=== PATIENT | female | born 1945 | race Caucasian/White ===

== ENCOUNTER 2018-02-23 09:03 | Outpatient (CLI) | payer OTHER, MEDICAID ==
[~2018-02-23 09:03] MED LIST: AMLO5TAB4 PO; ASPI-1153 PO
== END 2018-02-23 21:11 | disposition home or self-care (01) ==
LOC: SMA 09:03
PROVIDERS: ATTEND Family Medicine
DX: Z12.31 Encounter for screening mammogram for malignant neoplasm of breast (principal)
CPT/HCPCS: 77067